=== PATIENT | male | born 1945 | race Caucasian/White ===

== ENCOUNTER 2016-11-02 06:02 | Emergency (ER) | payer OTHER, MEDICARE ==
[~2016-11-02] VITALS: Ht 177.8 cm; Wt 100.0 kg
[~2016-11-02 06:02] MED LIST: NORV5TAB PO; PRAV10 PO; PRAZ5CAP16 PO; QUET200 PO; VALP250 PO; [UNRECOGNIZED DRUG - CODE] TOP
[2016-11-02 06:07] VITALS: BP 157/83; PULSE 62; RESP 20; TEMP 98.2; O2SAT 94
[2016-11-02] MEDS ORDERED: SODIUM CHLORIDE 0.9% FLUSH 5 ML FLUSH IVF PRN (06:30)
[2016-11-02 06:32] VITALS: O2SAT 93
[2016-11-02 06:54] LABS: AUTOMATED NEUTROPHIL # 5.9 TH/MM3 (1.8-7.7); BASOPHIL # 0.1 TH/MM3 (0-0.2); BASOPHIL % 0.8 % (0.0-2.0); EOSINOPHIL # 0.2 TH/MM3 (0-0.4); EOSINOPHIL % 2.3 % (0.0-4.0); HEMATOCRIT 41.8 % (39.0-51.0); HEMO FLAGS DIFF FINAL; LYMPH % 14.7 % (9.0-44.0); LYMPHOCYTE # 1.1 TH/MM3 (1.0-4.8); MEAN CELL VOLUME 88.3 FL (80.0-100.0); MEAN CORPUSCULAR HEMOGLOBIN 31.4 PG (27.0-34.0); MEAN CORPUSCULAR HGB CONC 35.6 % (32.0-36.0); MONO % 6.7 % (0.0-8.0); NEUT % 75.5 % (16.0-70.0); PLATELET COUNT 154 TH/MM3 (150-450); RED BLOOD COUNT 4.73 MIL/MM3 (4.50-5.90); RED CELL DISTRIBUTION WIDTH 13.9 % (11.6-17.2); WHITE BLOOD COUNT 7.8 TH/MM3 (4.0-11.0)
--- NOTE | 2016-11-02 07:10 | PD ---
HPI Chief Complaint: Pain: Acute or Chronic Time Seen by Provider: 06:19 Travel History International Travel<30 days: No Contact w/Intl Traveler<30days: No Traveled to known affect area: No History of Present Illness HPI 71-year-old male presents to the emergency department by EMS transport from home due to 12 hours of head pain and neck pain status post fall. Patient states she has chronic neck pain secondary to for cervical disc with fusion, patient also has history of CAD with previous CABG 2 vessels, patient has peripheral vascular disease, patient is primarily wheelchair dependent and states that he was trying to close his garage door therefore stood up off of his wheelchair and while reaching overhead lost his balance and fell backwards onto his buttock and then backwards onto his head with head and neck pain. Patient states he was able to crawl onto his wheelchair and work his way back into his home however after 12 hours of head pain neck pain and buttock pain decided to come to the emergency room for evaluation. Patient does take Coumadin. Patient has extensive past history that includes CAD CABG pacemaker Coumadin therapy dyslipidemia and seizure disorder. Patient did not have a seizure reportedly. Patient reports injury occurred approximately 6 PM last evening. [facility] Past Medical History Narrative Medical CAD CABG pacemaker Coumadin therapy dyslipidemia and seizure disorder; nursing notes reviewed; positive tobacco use Anxiety: Yes Depression: No Cardiac Catheterization: Yes Cardiovascular Problems: Yes (STENTx2) High Cholesterol: Yes Diminished Hearing: No Endocrine: No Genitourinary: No Hypertension: Yes Immune Disorder: No Implanted Vascular Access Dvce: Yes Musculoskeletal: Yes Psychiatric: Yes Reproductive: No Respiratory: No Seizures: Yes Past Surgical History Abdominal Aneurysm Repair: Yes (COILS) Abdominal Surgery: Yes Body Medical Devices: aorta implant Cardiac Surgery: Yes Coronary Artery Bypass Graft: Yes Pacemaker: Yes Other Surgery: Yes Social History Alcohol Use: No Tobacco Use: Yes ("DIP" X 20 PER DAY) Substance Use: No Allergies-Medications (Allergen,Severity, Reaction): Coded Allergies: Demerol (Verified Allergy, Mild, 11/02/16) Reported Meds & Prescriptions Reported Meds & Active Scripts Active Reported Norvasc (Amlodipine Besylate) 5 Mg Tab 5 Mg PO DAILY HOLD FOR HR LESS THAN 60 Zovirax 5% Cream 2 Gm Tube (Acyclovir) 2 Applic/2 Gm Cr 1 Applic TOP Q6 Prazosin Hcl (Prazosin HCl) 5 Mg Cap 5 Mg PO HS HOLD FOR HR LESS THAN 60 Quetiapine Fumarate 200 Mg Tab 100 Mg PO HS Pravachol (Pravastatin Sodium) 10 Mg Tab 40 Mg PO HS Depakene (Valproic Acid) 250 Mg Cap 1,500 Mg PO HS Narrative Medication coumadin Review of Systems Except as stated in HPI: all other systems reviewed are Neg General / Constitutional: No: Fever Eyes: No: Visual changes HENT: Positive: Headaches, Neck Pain Cardiovascular: No: Chest Pain or Discomfort Respiratory: No: Shortness of Breath Gastrointestinal: No: Abdominal Pain Genitourinary: No: Flank Pain Musculoskeletal: Positive: Myalgias, Arthralgias, Pain (buttock pain) Neurologic: No: Weakness, Dizziness, Syncope, Focal Abnormalities, Coordination Problem Psychiatric: No: Anxiety Hematologic/Lymphatic: No: Easy Bruising Physical Exam Narrative GENERAL: Well-developed well-nourished male in no acute distress no respiratory distress GCS 15 SKIN: Warm and dry. HEAD: Atraumatic. Normocephalic. No scalp soft tissue swelling; no laceration abrasion or bony abnormalities. EYES: Pupils equal and round. Extraocular muscles intact. No scleral icterus. No injection or drainage. ENT: No nasal bleeding or discharge. Mucous membranes pink and moist. Airway is patent. No hemotympanum. NECK: Trachea midline. No JVD. Mild tenderness to palpation along the cervical spine with no bony step-off. CARDIOVASCULAR: Regular rate and rhythm. Chest wall: Nontender to palpation. RESPIRATORY: No accessory muscle use. Clear to auscultation. Breath sounds equal bilaterally. GASTROINTESTINAL: Abdomen soft, non-tender, nondistended. Hepatic and splenic margins not palpable. MUSCULOSKELETAL: Extremities without clubbing, cyanosis, or edema. No obvious deformities. NEUROLOGICAL: Awake and alert. No obvious cranial nerve deficits. Motor grossly within normal limits. Five out of 5 muscle strength in the arms and legs. Normal speech. PSYCHIATRIC: Appropriate mood and affect; insight and judgment normal. Data Data Last Documented VS Vital Signs Date Time Temp Pulse Resp B/P Pulse Ox O2 Delivery O2 Flow Rate FiO2 11/02/16 06:32 93 Nasal Cannula 2 11/02/16 06:07 98.2 62 20 157/83 Orders Basic Metabolic Panel (Bmp) (11/02/16 06:19) Complete Blood Count With Diff (11/02/16 06:19) Prothrombin Time / Inr (Pt) (11/02/16 06:19) Act Partial Throm Time (Ptt) (11/02/16 06:19) Type And Screen (11/02/16 06:19) Pelvis, Ap Only (Routine) (11/02/16 06:19) Ct Brain W/O Iv Contrast(Rout) (11/02/16 06:19) Ct Cerv Spine W/O Contrast (11/02/16 06:19) Apply Cervical Collar (11/02/16 06:19) Iv Access Insert/Monitor (11/02/16 06:19) Ecg Monitoring (11/02/16 06:19) Oximetry (11/02/16 06:19) Oxygen Administration (11/02/16 06:19) Sodium Chloride 0.9% Flush (Ns Flush) (11/02/16 06:30) Remove Cervical Collar (11/02/16 07:58) Labs Laboratory Tests Test 11/02/16 06:35 White Blood Count 7.8 TH/MM3 Red Blood Count 4.73 MIL/MM3 Hemoglobin 14.9 GM/DL Hematocrit 41.8 % Mean Corpuscular Volume 88.3 FL Mean Corpuscular Hemoglobin 31.4 PG Mean Corpuscular Hemoglobin 35.6 % Concent Red Cell Distribution Width 13.9 % Platelet Count 154 TH/MM3 Mean Platelet Volume 8.7 FL Neutrophils (%) (Auto) 75.5 % Lymphocytes (%) (Auto) 14.7 % Monocytes (%) (Auto) 6.7 % Eosinophils (%) (Auto) 2.3 % Basophils (%) (Auto) 0.8 % Neutrophils # (Auto) 5.9 TH/MM3 Lymphocytes # (Auto) 1.1 TH/MM3 Monocytes # (Auto) 0.5 TH/MM3 Eosinophils # (Auto) 0.2 TH/MM3 Basophils # (Auto) 0.1 TH/MM3 CBC Comment DIFF FINAL Differential Comment Prothrombin Time 26.1 SEC Prothromb Time International 2.3 RATIO Ratio Activated Partial 35.8 SEC Thromboplast Time Sodium Level 140 MEQ/L Potassium Level 4.2 MEQ/L Chloride Level 108 MEQ/L Carbon Dioxide Level 24.9 MEQ/L Anion Gap 7 MEQ/L Blood Urea Nitrogen 17 MG/DL Creatinine 1.02 MG/DL Estimat Glomerular Filtration 72 ML/MIN Rate Random Glucose 104 MG/DL Calcium Level 9.0 MG/DL Blood Type A POSITIVE Antibody Screen NEGATIVE Blood Bank Comment MDM Medical Decision Making Medical Screen Exam Complete: Yes Emergency Medical Condition: Yes Medical Record Reviewed: Yes Interpretation(s) INR: Therapeutic 2.3 CBC is automated differential: Values within normal range Metabolic panel: Bicarbonate within normal limits CT brain noncontrast reading radiologist no acute abnormalities CT cervical spine per reading radiologist evidence of previous surgical intervention no acute fracture or acute abnormality per reading radiologist Differential Diagnosis Mechanical fall, minor CHI, ICH, cervical spine sprain strain fracture cord compression, coagulopathy, pelvic fracture, buttock contusion Narrative Course 71-year-old male 12 hours after non-syncopal slip and fall with head pain neck pain and pelvic pain. Patient is wheelchair dependent. Due to pain complaint decided to come to the emergency room for evaluation. CT brain noncontrast reveals no acute abnormality CT cervical spine noncontrast reveals no acute bony abnormality or fracture chronic changes are noted; cervical collar removed by me Lab values remarkable for therapeutic INR otherwise eyes are grossly within normal range Pelvic x-ray remains pending; care signed over to oncoming physician at 8:40 AM for patient disposition. Amelia Boone MD Nov 02, 2016 07:10
[2016-11-02 07:13] LABS: APTT (PATIENT) 35.8 SEC (24.3-30.1); INTERNATIONAL NORMALIZED RATIO 2.3 RATIO; PROTHROMBIN TIME - PATIENT 26.1 SEC (9.8-11.6)
[2016-11-02 07:19] LABS: BICARBONATE 24.9 MEQ/L (21.0-32.0); POTASSIUM 4.2 MEQ/L (3.5-5.1)
--- NOTE | 2016-11-02 07:23 | RADRPT ---
EXAM DATE/TIME: 11/02/2016 07:09 [facility] COMPARISON: CT BRAIN W/O CONTRAST, November 15, 2012, 9:01. INDICATIONS : Trauma. Trip and fall last night. RADIATION DOSE: 56.35 CTDIvol (mGy) MEDICAL HISTORY : Seizures. Cardiovascular disease Aneurysm, abdominal.Hypertension. SURGICAL HISTORY : Pacemaker. CABGCABGCervical surgeries. ENCOUNTER: Initial ACUITY: 1 day PAIN SCALE: 4/10 LOCATION: cranial TECHNIQUE: Multiple contiguous axial images were obtained of the head. Using automated exposure control and adj ustment of the mA and/or kV according to patient size, radiation dose was kept as low as reasonably a chievable to obtain optimal diagnostic quality images. FINDINGS: CEREBRUM: The ventricles are normal for age with a cavum septum pellucidum. No evidence of midline shift, mass lesion, hemorrhage or acute infarction. No extra-axial fluid collections are seen. POSTERIOR FOSSA: The cerebellum and brainstem are intact. The 4th ventricle is midline. The cerebellopontine angle i s unremarkable. EXTRACRANIAL: The visualized portion of the orbits is intact. SKULL: The calvaria is intact. No evidence of skull fracture. CONCLUSION: Normal examination. Louie Thorne MD on November 02, 2016 at 7:22 Board Certified Radiologist. This report was verified electronically.
--- NOTE | 2016-11-02 07:46 | RADRPT ---
EXAM DATE/TIME: 11/02/2016 07:11 [facility] COMPARISON: CT BRAIN W/O CONTRAST, November 02, 2016, 7:09. INDICATIONS : Trauma. Trip and fall last night. RADIATION DOSE: 38.21 CTDIvol (mGy) MEDICAL HISTORY : Seizures. Cardiovascular disease Aneurysm, abdominal.Hypertension. SURGICAL HISTORY : CABG Pacemaker.Cervical surgeries. ENCOUNTER: Initial ACUITY: 1 day PAIN SCALE: 10/10 LOCATION: Bilateral neck TECHNIQUE: Volumetric scanning of the cervical spine was performed. Multiplanar reconstructions in the sagittal, coronal and oblique axial planes were performed. Using automated exposure control and adjustment o f the mA and/or kV according to patient size, radiation dose was kept as low as reasonably achievable to obtain optimal diagnostic quality images. FINDINGS: Thin section axial imaging of the cervical spine was performed. Sagittal and coronal imaging demonstrate adequate alignment of the vertebral bodies. The examination demonstrates postsurgical changes involving the right side of the lamina and surgical hardware extend ing from C3 down to C7. C1/2: There are moderate degenerative changes in the atlantodens joint. C2/3: The facet joints are fused. There is mild osteophytic ridging from the vertebral endplates. The theca l space and foramina appear adequate. C3/4: The facet joints are fused. There is a degenerated disc with osteophytic ridging from the vertebral e ndplates. This just effaces the ventral thecal sac. The residual thecal space and foramina appear rima quate. C4/5: There is a degenerated disc. There is osteophytic ridging from the vertebral endplates. There is a sm all broad-based disc bulge. This can be seen abutting the ventral surface of the cord. There is mild bony narrowing of the foramina bilaterally. There are postsurgical changes in the lamina on the right . The facet joints appear at least partially fused. C5/6: There are postsurgical changes in the lamina on the right. There is a degenerated disc with a small b road-based disc bulge. There is mild osteophytic ridging from the vertebral endplates. There are dege nerative changes in the facet joints. There is mild bony foraminal narrowing bilaterally. C6/7: There are postsurgical changes in the lamina. There is a degenerated disc. The thecal space appears a dequate. There is mild bony foraminal narrowing bilaterally. C7/T1: There are postsurgical changes in the lamina on the right. There is a degenerated disc and mild osteo phytic ridging. The thecal space and foramina appear adequate. CONCLUSION: 1. Postsurgical and degenerative changes as above. Note is made of fusion of the facet joints at C2/3 and C3/4. The individual levels are described in detail above. No acute fracture is seen. Roderick Higginbotham MD on November 02, 2016 at 7:36 Board Certified Radiologist. This report was verified electronically.
--- NOTE | 2016-11-02 09:40 | RADRPT ---
EXAM DATE/TIME: 11/02/2016 08:28 [facility] COMPARISON: No previous studies available for comparison. INDICATIONS : Pelvic pain after fall. MEDICAL HISTORY : None. SURGICAL HISTORY : None. ENCOUNTER: Initial ACUITY: 1 day PAIN SCORE: 5/10 LOCATION: middle pelvis. FINDINGS: A single frontal view of the pelvis demonstrates no evidence of fracture. The bony pelvic ring is in tact. Bony mineralization is normal. Vascular coils noted right hemipelvis. Multiple surgical clips in the lower abdomen and in bilateral inguinal regions. Extensive atherosclerotic disease. CONCLUSION: 1. No acute findings. Herbert Kingston MD on November 02, 2016 at 9:37 Board Certified Radiologist. This report was verified electronically.
[2016-11-02 10:17] VITALS: BP 153/77; PULSE 61; RESP 16; O2SAT 93
[2016-11-02] MEDS ORDERED: WARF-21 PO (10:22)
[2016-11-02] MEDS ORDERED: AMLO5 PO (10:22)
[2016-11-02] MEDS ORDERED: ATOR40TA16 PO (10:22)
[2016-11-02] MEDS ORDERED: SERT-129 PO (10:22)
[2016-11-02] MEDS ORDERED: WARF-23 PO (10:22)
[2016-11-02] MEDS ORDERED: AMBI5TAB PO (10:25)
[2016-11-02] MEDS ORDERED: STOO100C PO (10:25)
[2016-11-02] MEDS ORDERED: TRAZ50TA12 PO (10:25)
[2016-11-02] MEDS ORDERED: VITA500T4 PO (10:25)
[2016-11-02] MEDS ORDERED: VALP250 PO (10:29)
--- NOTE | 2016-11-02 10:31 | PD ---
Data Data Last Documented VS Vital Signs Date Time Temp Pulse Resp B/P Pulse Ox O2 Delivery O2 Flow Rate FiO2 11/02/16 10:17 61 16 153/77 93 Nasal Cannula 2.0 11/02/16 06:07 98.2 Orders Basic Metabolic Panel (Bmp) (11/02/16 06:19) Complete Blood Count With Diff (11/02/16 06:19) Prothrombin Time / Inr (Pt) (11/02/16 06:19) Act Partial Throm Time (Ptt) (11/02/16 06:19) Type And Screen (11/02/16 06:19) Pelvis, Ap Only (Routine) (11/02/16 06:19) Ct Brain W/O Iv Contrast(Rout) (11/02/16 06:19) Ct Cerv Spine W/O Contrast (11/02/16 06:19) Apply Cervical Collar (11/02/16 06:19) Iv Access Insert/Monitor (11/02/16 06:19) Ecg Monitoring (11/02/16 06:19) Oximetry (11/02/16 06:19) Oxygen Administration (11/02/16 06:19) Sodium Chloride 0.9% Flush (Ns Flush) (11/02/16 06:30) Remove Cervical Collar (11/02/16 07:58) Labs Laboratory Tests Test 11/02/16 06:35 White Blood Count 7.8 TH/MM3 Red Blood Count 4.73 MIL/MM3 Hemoglobin 14.9 GM/DL Hematocrit 41.8 % Mean Corpuscular Volume 88.3 FL Mean Corpuscular Hemoglobin 31.4 PG Mean Corpuscular Hemoglobin 35.6 % Concent Red Cell Distribution Width 13.9 % Platelet Count 154 TH/MM3 Mean Platelet Volume 8.7 FL Neutrophils (%) (Auto) 75.5 % Lymphocytes (%) (Auto) 14.7 % Monocytes (%) (Auto) 6.7 % Eosinophils (%) (Auto) 2.3 % Basophils (%) (Auto) 0.8 % Neutrophils # (Auto) 5.9 TH/MM3 Lymphocytes # (Auto) 1.1 TH/MM3 Monocytes # (Auto) 0.5 TH/MM3 Eosinophils # (Auto) 0.2 TH/MM3 Basophils # (Auto) 0.1 TH/MM3 CBC Comment DIFF FINAL Differential Comment Prothrombin Time 26.1 SEC Prothromb Time International 2.3 RATIO Ratio Activated Partial 35.8 SEC Thromboplast Time Sodium Level 140 MEQ/L Potassium Level 4.2 MEQ/L Chloride Level 108 MEQ/L Carbon Dioxide Level 24.9 MEQ/L Anion Gap 7 MEQ/L Blood Urea Nitrogen 17 MG/DL Creatinine 1.02 MG/DL Estimat Glomerular Filtration 72 ML/MIN Rate Random Glucose 104 MG/DL Calcium Level 9.0 MG/DL Blood Type A POSITIVE Antibody Screen NEGATIVE Blood Bank Comment MDM Supervised Visit with FIDENCIO: No Narrative Course This case is checked out to me by Dr. Boone. I reviewed the entirety of the workup with the patient and answered his questions. Brain CT is negative. Cervical spine CT shows postsurgical and gender change but no trauma. Pelvic x- ray negative. Labs are normal and INR is 2.3 on Coumadin. I offered him pain medication but he declines. He is stable for outpatient follow[facility]. Advised to return if he worsens. Diagnosis Primary Impression: Head injury due to trauma Qualified Code: S09.90XA - Head injury due to trauma, initial encounter Additional Impression: Cervical strain, acute Qualified Code: S16.1XXA - Cervical strain, acute, initial encounter Additional Instruction: The patient was advised to follow up with their physician and return if they worsen. Med/Other Pt SpecificInfo: Other Disposition: 01 DISCHARGE HOME Condition: Stable Shadi Song MD Nov 02, 2016 10:31
== END 2016-11-02 11:40 | disposition home or self-care (01) ==
LOC: NEPC 06:02
DX: S09.90XA Unspecified injury of head, initial encounter (principal); M54.2 Cervicalgia; G89.29 Other chronic pain; S16.1XXA Strain of muscle, fascia and tendon at neck level, initial encounter; Z95.0 Presence of cardiac pacemaker; I25.10 Atherosclerotic heart disease of native coronary artery without angina pectoris; Z95.1 Presence of aortocoronary bypass graft; I10 Essential (primary) hypertension; E78.00 Pure hypercholesterolemia, unspecified; Z72.0 Tobacco use; Z79.01 Long term (current) use of anticoagulants; W18.39XA Other fall on same level, initial encounter; Y93.89 Activity, other specified; Y92.008 Other place in unspecified non-institutional (private) residence as the place of occurrence of the external cause
CPT/HCPCS: 70450; 72125; 72170; 80048; 85025; 85610; 85730; 86850; 86900; 86901